=== PATIENT | female | born 1990 | race Caucasian/White ===

== ENCOUNTER 2021-05-06 13:51 | Outpatient (CLI) | payer OTHER ==
[~2021-05-06] VITALS: Ht 172.7 cm; Wt 93.6 kg
== END 2021-05-06 17:55 | disposition home or self-care (01) ==
LOC: LDOP 13:51
PROVIDERS: ATTEND Obstetrics & Gynecology
DX: O21.2 Late vomiting of pregnancy (principal); O26.893 Other specified pregnancy related conditions, third trimester; Z3A.40 40 weeks gestation of pregnancy
CPT/HCPCS: 59025; 76819; 84112; 87635